=== PATIENT | male | born 1960 ===

== ENCOUNTER 2025-04-18 06:00 | Day surgery (SDC) | payer OTHER ==
[2025-04-16 07:56] LABS: BASO % 1.2 % (0.1-1.2); EOS # 0.35 (0.04-0.54); EOS % 5.4 % (0.7-7.0); LYMPH # 1.59 (1.18-3.74); LYMPH % 24.7 % (19.3-53.1); MEAN PLATELET VOLUME 11.30 fl (9.4-12.4); MONO # 0.57 (0.24-0.82); MONO % 8.9 % (4.7-12.5); NEUT # 3.83 (1.56-6.13); NEUT % 59.6 % (34.0-71.1); RED CELL DISTRIBUTION WIDTH 12.6 % (11.6-14.4)
[2025-04-16 08:30] LABS: INR 1.0
[2025-04-16 08:43] VITALS: BP 142/82
[2025-04-16 09:00] LABS: ALT/SGPT 43.0 U/L (12-78); AST/SGOT 24.0 U/L (15-37); BILIRUBIN TOTAL 0.56 mg/dL (0.3-1.2); BUN CREA RATIO 20.0 (7.0-25.0); CREATININE SERUM 0.93 mg/dL (0.70-1.30); GFR 81.8; GLOBULINA 3.0 G/DL (2.4-3.5); GLUCOSE FASTING 150.0 mg/dL (65-100); OSMOLALITY SERUM 288.0 MOSM/KG (275-295)
[~2025-04-18] VITALS: Ht 160 cm; Wt 113.4 kg
[~2025-04-18 06:00] MED LIST: ACID CONTROLLER20 MG PO; ACTOS30 MG; ADVIL200 M1 PO; ARBLI10 MG/1 ML PO; BAYER CHEWABLE81 MG PO; CARDURA1 MG PO; DICLOFENAC-MIS1 EAC1 PO; GLIPIZIDE XL5 MG; SIMVASTATIN80 MG
== END 2025-04-18 10:05 | disposition home or self-care (01) ==
LOC: CIR.AMB 06:00
PROVIDERS: ATTEND Internal Medicine
DX: K21.9 Gastro-esophageal reflux disease without esophagitis (principal); D13.0 Benign neoplasm of esophagus; K29.00 Acute gastritis without bleeding; D37.8 Neoplasm of uncertain behavior of other specified digestive organs